=== PATIENT | male | born 1955 | race Caucasian/White ===

== ENCOUNTER 2016-07-01 20:13 | Emergency (ER) | payer OTHER ==
[~2016-07-01] VITALS: Ht 177.8 cm; Wt 81.8 kg
[2016-07-01] MEDS ORDERED: LIDOCAINE HCL BUFFERED 1% 20 ML VIAL INJ ONE (20:45)
[2016-07-01] MEDS ORDERED: POVIDONE-IODINE 15 ML SOLUTION UD TP ONE (20:45)
[2016-07-01 21:44] VITALS: BP 130/85
== END 2016-07-01 21:53 | disposition home or self-care (01) ==
LOC: EMS 20:16
DX: M70.22 Olecranon bursitis, left elbow (principal); Y93.89 Activity, other specified
CPT/HCPCS: 20610; 73080; 87070; 87205; 99285; J3490

== ENCOUNTER 2017-04-19 03:10 | Emergency (ER) | payer OTHER | END 2017-04-19 06:06 | disposition left against medical advice (07) | LOC: EMS 03:10 | DX: S81.819A Laceration without foreign body, unspecified lower leg, initial encounter (principal); W45.8XXA Other foreign body or object entering through skin, initial encounter; Y93.89 Activity, other specified; Y92.89 Other specified places as the place of occurrence of the external cause; Y99.8 Other external cause status; Z53.21 Procedure and treatment not carried out due to patient leaving prior to being seen by health care provider ==